=== PATIENT | male | born 1985 | race Two or more races ===

== ENCOUNTER 2017-01-08 01:38 | Emergency (ER) | END 2017-01-08 02:45 | disposition left against medical advice (07) ==

== ENCOUNTER 2017-01-21 08:55 | Emergency (ER) | payer OTHER ==
[~2017-01-21] VITALS: Ht 167.6 cm; Wt 100.0 kg
[2017-01-21 08:57] VITALS: Ht 167.6 cm; Wt 100.0 kg
[2017-01-21] MEDS ORDERED: IBUPROFEN 600 MG TAB PO STA (09:33)
[2017-01-21] MEDS ORDERED: HYDROCODONE/APAP (5/325) TAB PO STA (09:33)
--- NOTE | 2017-01-21 09:35 | ERD ---
ER Documentation Chief Complaint Chief Complaint Complains of right leg pain after a fall HPI 31-year-old male presenting to the emergency department complaining of her it to severe right ankle and lower extremity pain status post ground level fall that occurred earlier today. Denies taking any medications for this. Cannot ambulate due to pain ROS All systems reviewed and are negative except as per history of present illness. Medications Home Meds Active Scripts Ibuprofen* (Motrin*) 600 Mg Tab, 600 MG PO Q6H Y for PAIN AND OR ELEVATED TEMP, #30 TAB Prov:BIJAN FLORES PA-C 01/21/17 Hydrocodone/Acetaminophen ([place] 5-325 Tablet) 1 Each Tablet, 1-2 TAB PO Q6H Y for PAIN, #30 TAB Prov:BIJAN FLORES PA-C 01/21/17 Allergies Allergies: Coded Allergies: No Known Allergy (Unverified , 01/08/17) PMhx/Soc History of Surgery: No Anesthesia Reaction: No Hx Neurological Disorder: No Hx Respiratory Disorders: No Hx Cardiac Disorders: No Hx Psychiatric Problems: No Hx Miscellaneous Medical Probl: No Hx Alcohol Use: Yes Hx Substance Use: No Hx Tobacco Use: Yes Smoking Status: Current some day smoker Physical Exam Vitals Vital Signs Date Time Temp Pulse Resp B/P Pulse Ox O2 Delivery O2 Flow Rate FiO2 01/21/17 08:57 98.3 89 20 95/69 99 Physical Exam General: WD/WN, in no apparent distress, non-toxic appearing HENT: NC/AT Eyes: Conjunctiva normal Neck: Supple Pulm: Clear to auscultation, normal labored breathing; no wheezing/rales/ rhonchi heard CV: Good capillary refill GI: Non-distended, no guarding Back: No masses Ext: Tender to palpation over the right lateral malleolus and distal tib-fib, restricted range of motion, cannot ambulate Neuro: Moves on all fours Skin: intact Psych: Normal mood Results 24 hrs Current Medications Medications (Trade) Dose Ordered Sig/Ita Route PRN Reason Start Time Stop Time Status Last Admin Dose Admin Acetaminophen/ Hydrocodone Bitart (Qu[place]cy (5/325)) 2 tab ONCE STAT PO 01/21/17 09:33 01/21/17 09:34 DC 01/21/17 09:40 Ibuprofen (Motrin) 600 mg ONCE STAT PO 01/21/17 09:33 01/21/17 09:34 DC 01/21/17 09:40 Procedures/MDM This is a 31-year-old male presenting to the emergency department with distal ankle fracture due to ground level fall. XR right ankle/tib/fib was done and radiologist stated: There is an oblique spiral mildly displaced fracture of the right distal fibula with associated soft tissue swelling. There is a transverse fracture of the medial tibial malleolus. There is mild widening of the ankle mortise medially. No evidence of compartment syndrome or open fracture. Patient was given Quin[place] and ibuprofen for pain in the ED, pains stabilized. he was placed in a posterior ankle splint with good fit. Patient is neurovascular intact pre-and post treatment. He was given crutches. I discussed with him to follow-up with an orthopedist tomorrow for further evaluation. Discussed return to the ER for any worsening signs or symptoms. He understands and agrees with this plan. Prescription Quin[place] and ibuprofen was provided. Departure Diagnosis: Primary Impression: Fracture of distal end of fibula Additional Impression: Tibial fracture Condition: BIJAN Barnes PA-C Jan 21, 2017 09:35
--- NOTE | 2017-01-21 10:12 | RADRPT ---
PROCEDURE: XR Ankle. CLINICAL INDICATION: Pain TECHNIQUE: AP, and lateral views of the right ankle were performed. COMPARISON: None. FINDINGS: There is an oblique spiral mildly displaced fracture of the right distal fibula with associated soft tissue swelling. There is a transverse fracture of the medial tibial malleolus. There is mild widening of the ankle mortise medially. There is normal mineralization. There are no significant degenerative changes. RPTAT: AA IMPRESSION: Right distal fibular fracture with associated soft tissue swelling. Transverse fracture of the medial tibial malleolus. Further evaluation with a CT is recommended. .Nathaniel White MD, MD Date Time Electronically viewed and signed by .Nathaniel White MD, MD on 01/21/2017 10:11 .S/
--- NOTE | 2017-01-21 10:13 | RADRPT ---
PROCEDURE: Right tibia and fibula x-ray CLINICAL INDICATION: pain TECHNIQUE: AP, lateral views of the tibia and fibula were obtained. COMPARISON: None FINDINGS: There is an oblique spiral mildly displaced fracture of the right distal fibula with associated soft tissue swelling. There is a transverse fracture of the medial tibial malleolus. No other fractures are seen. There is normal mineralization. There are no significant degenerative changes. RPTAT: AA IMPRESSION: Right distal fibular fracture with associated soft tissue swelling. Transverse fracture of the medial tibial malleolus. Further evaluation with a CT is recommended. .Nathaniel White MD, MD Date Time Electronically viewed and signed by .Nathaniel White MD, on 01/21/2017 10:12 .S/
[2017-01-21] MEDS ORDERED: HYDR-906 PO (10:18)
[2017-01-21] MEDS ORDERED: IBUP-1542 PO (10:18)
== END 2017-01-21 10:41 | disposition home or self-care (01) ==
LOC: FTE 08:55
DX: S82.401A Unspecified fracture of shaft of right fibula, initial encounter for closed fracture (principal); S82.301A Unspecified fracture of lower end of right tibia, initial encounter for closed fracture; F17.210 Nicotine dependence, cigarettes, uncomplicated; W18.39XA Other fall on same level, initial encounter; Y92.9 Unspecified place or not applicable
CPT/HCPCS: 29515; 73590; 73610; Z7502; Z7610